=== PATIENT | female | born 1950 | race Caucasian/White ===

== ENCOUNTER → 2019-05-06 | Outpatient (CLI) | payer MEDICARE, BC ==
--- NOTE | 2019-05-09 18:17 | RAD ---
BILATERAL SCREENING MAMMOGRAM, 3-D History: Routine screening. Comparison: 03/06/2010: 2012. Technique: MLO and CC digital tomosynthesis (3D) images obtained. Radiologist reviewed these images on dedicated workstation. Findings: Breast Tissue Density B : There are scattered areas of fibroglandular density. There are no dominant masses, suspicious microcalcifications, or architectural distortion. Left-sided subareolar ductal ectasia is present. IMPRESSION: No mammographic evidence of malignancy. Recommend routine screening. BI-RADS category 1: Negative. The images were reviewed with computer-aided detection. Patient information is entered into reminder system with a target due date for the next screening mammogram. Mammography is the most sensitive method for finding small breast cancers, but it does not detect them all and is not a substitute for careful clinical examination. A negative mammogram does not negate a clinically suspicious finding and should not result in delay in biopsying a clinically suspicious abnormality. "Our facility is accredited by the [employer] Mammography Program." Electronically signed by: Kit Haddad MD (05/09/2019 6:14 PM) [email or web address]
== END ==
LOC: MAMMO 10:00
PROVIDERS: ATTEND Physician Assistant Medical
DX: Z12.31 Encounter for screening mammogram for malignant neoplasm of breast (principal)
CPT/HCPCS: 77063; 77067

== ENCOUNTER → 2020-02-17 | Outpatient (CLI) | payer MEDICARE, BC ==
--- NOTE | 2020-02-17 15:29 | RAD ---
EXAM: Cervical spine, 7 views. HISTORY: Pain. COMPARISON: None. FINDINGS: 7 views of the cervical spine are obtained. There is degenerative endplate remodeling with disc space narrowing and spurring at C4-C5, C5-C6 and C6-C7. There is multilevel facet arthropathy. T here is bilateral foraminal stenosis primarily on the right at C4-C5. No fracture is seen. IMPRESSION: Multilevel degenerative change, primarily at the mid and lower cervical levels. No acute osseous finding. Electronically signed by: Yun Horton MD (02/17/2020 3:26 PM) [facility]
--- NOTE | 2020-02-17 16:17 | RAD ---
XR HAND_RIGHT 3 VIEWS 02/17/2020 11:57 AM INDICATION: Right hand pain COMPARISON: None available. TECHNIQUE: 3 views the right hand are provided. FINDINGS/ IMPRESSION: There is an obliquely oriented fracture involving the midshaft of the third metacarpal with callus fo rmation cyst of a subacute fracture. There is regional soft tissue swelling. No definite articular ex tension is identified, although a CT may be of benefit for further evaluation. Carpal bones appear in tact. Joint spaces are otherwise maintained. No subcutaneous gas or osseous erosion. Electronically signed by: Marleni Ribera MD (02/17/2020 4:14 PM) [id number]
== END ==
LOC: PMG 11:41
PROVIDERS: ATTEND Physician Assistant Medical
DX: M47.812 Spondylosis without myelopathy or radiculopathy, cervical region (principal); M48.02 Spinal stenosis, cervical region; M54.12 Radiculopathy, cervical region
CPT/HCPCS: 72050; 73130

== ENCOUNTER → 2020-07-16 | Outpatient (CLI) | payer MEDICARE, BC ==
--- NOTE | 2020-07-16 12:03 | RAD ---
PA and lateral chest. HISTORY: Chest pain PA and lateral views were taken of the chest. Lungs are free of infiltrates. There is no pneumothorax or pleural effusion. Heart is normal in size. IMPRESSION: 1. No acute chest disease. Electronically signed by: Silvino Quan MD (07/16/2020 12:00 PM) [email or web address]
--- NOTE | 2020-07-16 12:04 | RAD ---
Supine abdomen. HISTORY: Abdominal pain Supine view was taken of the abdomen. There is moderate stool right colon. There is no small bowel ob struction. There are phleboliths in the pelvis. There are no other abnormal calcifications. Spleen is generous in size. IMPRESSION: 1. Moderate stool right colon. 2. No bowel obstruction. 3. Spleen is generous in size. 4. No other acute finding. Electronically signed by: Silvino Quan MD (07/16/2020 12:01 PM) [email or web address]
== END ==
LOC: PMG 11:43
PROVIDERS: ATTEND Physician Assistant Medical
DX: R10.9 Unspecified abdominal pain (principal); R07.9 Chest pain, unspecified
CPT/HCPCS: 71046; 74018